=== PATIENT | male | born 1985 | race Two or more races ===

== ENCOUNTER 2022-09-21 08:28 | Emergency (ER) | payer SELFPAY ==
[~2022-09-21] VITALS: Ht 167.6 cm; Wt 93.0 kg
[2022-09-21 10:05] LABS: Albumin 3.6 g/dL (3.4-5.0); Calcium 9.3 mg/dL (8.5-10.1); Potassium 4.1 mmol/L (3.5-5.1)
[2022-09-21 10:09] LABS: BUN/Creatinine Ratio 12.1 (10.0-20.0); Bilirubin, Total 0.4 mg/dL (0.2-1.0); Total Protein 8.2 g/dL (6.4-8.2)
[2022-09-21] MEDS ORDERED: LEVO-28 PO (10:44)
[2022-09-21] MEDS ORDERED: PRED20TA2 PO (10:44)
[2022-09-21] MEDS ORDERED: cefTRIAXone SOD 1,000 MG VL IM ONE (10:45)
[2022-09-21 11:50] LABS: Hematocrit 46.7 % (41.0-53.0); Hemoglobin 16.2 g/dL (13.5-17.5); Mean Corpuscular Hemoglobin 29.2 pg (28.0-32.0); Mean Corpuscular Hgb Conc. 34.6 g/dL (32.0-36.0); Mean Corpuscular Volume 84.4 fL (80.0-100.0); Red Blood Cells 5.53 10^6/uL (4.5-5.90); Red Cell Distribution Width 13.3 % (11.8-14.3); White Blood Cell 10.4 10^3/uL (4.4-10.8)
[2022-09-21 12:35] LABS: Band Neutrophils % (manual) 0; Basophils % (manual) 0 (0.0-2.0); Blast Cells 0; Metamyelocytes % 0; Myelocytes % 0; Promyelocytes % 0; Reactive Lymphocytes 0
[2022-09-21 13:08] LABS: Eosinophils % (manual) 15 (0-7); Lymphocytes % (manual) 37 (10.0-50.0); Monocytes % (manual) 4 (0-12)
[2022-09-21 14:30] VITALS: BP 133/83
== END 2022-09-21 14:29 | disposition home or self-care (01) ==
LOC: ER 08:28
DX: J20.9 Acute bronchitis, unspecified (principal)
CPT/HCPCS: 36415; 71045; 80053; 83880; 84484; 85007; 85027; 85379; 96372; 99284; J0696